=== PATIENT | female | born 1970 | race Caucasian/White ===

== ENCOUNTER 2017-11-22 06:45 | Day surgery (SDC) | payer OTHER ==
[~2017-11-22] VITALS: Ht 165.1 cm; Wt 59.0 kg
[2017-11-22 07:18] VITALS: BP 144/63
[2017-11-22 10:06] VITALS: BP 122/71
== END 2017-11-22 10:40 | disposition home or self-care (01) ==
LOC: DS 06:45 → OR 07:30 → GI 07:30 → DS 07:30
PROVIDERS: Internal Medicine
PROC: 0DB48ZX Excision of Esophagogastric Junction, Via Natural or Artificial Opening Endoscopic, Diagnostic (ICD-10-PCS; 2017-11-22)
PROC: 0DJD8ZZ Inspection of Lower Intestinal Tract, Via Natural or Artificial Opening Endoscopic (ICD-10-PCS; 2017-11-22)
PROC: 0DB98ZX Excision of Duodenum, Via Natural or Artificial Opening Endoscopic, Diagnostic (ICD-10-PCS; principal; 2017-11-22 07:30)
PROC: 0DB38ZX Excision of Lower Esophagus, Via Natural or Artificial Opening Endoscopic, Diagnostic (ICD-10-PCS; 2017-11-22 07:30)
DX: F79 Unspecified intellectual disabilities (principal); Z12.11 Encounter for screening for malignant neoplasm of colon; R63.4 Abnormal weight loss; F32.9 Major depressive disorder, single episode, unspecified; F41.9 Anxiety disorder, unspecified; K20.8 Other esophagitis; K22.70 Barrett's esophagus without dysplasia; K29.70 Gastritis, unspecified, without bleeding; K64.4 Residual hemorrhoidal skin tags; K57.90 Diverticulosis of intestine, part unspecified, without perforation or abscess without bleeding; K31.7 Polyp of stomach and duodenum; Z68.21 Body mass index [BMI] 21.0-21.9, adult
CPT/HCPCS: 43235; 45378; J1200; J1610; J2250; J2310; J3010; J3490